=== PATIENT | female | born 1940 | race African-American/Black ===

== ENCOUNTER 2017-07-15 13:12 | Observation (INO) | payer OTHER ==
[~2017-07-15] VITALS: Ht 154.9 cm; Wt 49.9 kg
[2017-07-15] MEDS ORDERED: cloNIDine HCL 0.1 MG TAB PO ONE (14:00)
[2017-07-15 14:02] LABS: Hematocrit 26.7 % (36.0-46.0); Hemoglobin 7.9 g/dL (12.2-16.2); Mean Corpuscular Hemoglobin 20.9 pg (28.0-32.0); Mean Corpuscular Hgb Conc. 29.4 g/dL (32.0-36.0); Mean Corpuscular Volume 71.2 fL (80.0-100.0); Red Blood Cells 3.76 10^6/uL (4.0-5.20)
[2017-07-15 14:16] LABS: Alanine Aminotransferase 53 U/L (13-56); Albumin 3.1 g/dL (3.4-5.0); Anion Gap 10 (5-15); Aspartate Aminotransferase 78 U/L (15-37); BUN/Creatinine Ratio 11.8; Blood Urea Nitrogen 8 mg/dL (7-18); Calcium 8.2 mg/dL (8.5-10.1); Carbon Dioxide 24 mmol/L (21-32); Chloride 109 mmol/L (98-107); GFR African American 108 mL/min; GFR Non-African American 90 mL/min; Glucose 78 mg/dL (74-106); INR 1.09 (0.9-1.15); Magnesium 1.9 mg/dL (1.6-2.6); Partial Thromboplastin Time 31.5 sec (23.78-33.04); Prothrombin Time 11.6 sec (9.27-12.13); Red Cell Distribution Width 23.6 % (11.8-14.3); Sodium 143 mmol/L (136-145)
[2017-07-15 14:18] LABS: Band Neutrophils % (manual) 0; Basophils % (manual) 0 (0.0-2.0); Blast Cells 0; Eosinophils % (manual) 0 (0-7); Metamyelocytes % 0; Myelocytes % 0; Promyelocytes % 0; Reactive Lymphocytes 0
[2017-07-15 14:24] LABS: Alkaline Phosphatase 210 U/L (45-117); Total Protein 9.1 g/dL (6.4-8.2)
[2017-07-15 14:37] LABS: Lymphocytes % (manual) 24 (10.0-50.0); Monocytes % (manual) 5 (0-12)
[2017-07-15 14:42] LABS: Platelet Count (auto) 53 10^3/uL (140-450)
[2017-07-15] MEDS ORDERED: POTASSIUM CHL 20 Meq TABLET PO ONE (15:30)
[2017-07-15 18:20] VITALS: BP 169/85
== END 2017-07-15 17:08 | disposition short-term general hospital (02) | DRG 684 ==
LOC: EDBD 13:12 → ER 13:17 → OVERFLOW 13:18 → ER 17:08
PROVIDERS: ADMIT Family Medicine; ATTEND Family Medicine
DX: I12.9 Hypertensive chronic kidney disease with stage 1 through stage 4 chronic kidney disease, or unspecified chronic kidney disease (principal); N18.3 Chronic kidney disease, stage 3 (moderate); D69.6 Thrombocytopenia, unspecified; E87.6 Hypokalemia; F03.90 Unspecified dementia, unspecified severity, without behavioral disturbance, psychotic disturbance, mood disturbance, and anxiety
CPT/HCPCS: 36415; 70450; 71045; 80053; 82962; 83735; 83880; 84443; 84484; 85007; 85027; 85610; 85730; 93005; 99291; G0378; J7030

== ENCOUNTER 2018-10-18 16:22 | Emergency (ER) | payer OTHER ==
[~2018-10-18] VITALS: Ht 160 cm; Wt 56.7 kg
[2018-10-18 17:26] LABS: Basophils # (auto) 0 uL; Basophils % (auto) 0.3 % (0.0-2.0); Eosinophils # (auto) 0 uL; Lymphocytes # (auto) 0.2 uL; Neutrophils # (auto) 1.7 uL; White Blood Cell 2.2 10^3/uL (4.4-10.8)
[2018-10-18 17:29] LABS: Eosinophils % (auto) 1.6 % (0.0-7.0); Hematocrit 29.1 % (36.0-46.0); Hemoglobin 9.3 g/dL (12.2-16.2); Lymphocytes % (auto) 8.3 % (10.0-50.0); Mean Corpuscular Hemoglobin 26.4 pg (28.0-32.0); Mean Corpuscular Volume 82.5 fL (80.0-100.0); Monocytes # (auto) 0.3 uL; Monocytes % (auto) 12.1 % (0.0-12.0); Neutrophils % (auto) 77.7 % (37.0-80.0); Nucleated Red Blood Cells % 0.1 %; Platelet Count (auto) 50 10^3/uL (140-450); Red Blood Cells 3.52 10^6/uL (4.0-5.20)
[2018-10-18 17:33] LABS: Red Cell Distribution Width 20.4 % (11.8-14.3)
[2018-10-18 17:49] LABS: BUN/Creatinine Ratio 15.2; Calcium 8.2 mg/dL (8.5-10.1)
[2018-10-18 17:59] LABS: Potassium 2.9 mmol/L (3.5-5.1)
[2018-10-18] MEDS ORDERED: POTASSIUM CHL 20 Meq TABLET PO ONE (18:15)
[2018-10-18 18:44] VITALS: BP 197/88
== END 2018-10-18 19:02 | disposition home or self-care (01) ==
LOC: EDBD 16:22 → ER 16:28
DX: I16.0 Hypertensive urgency (principal); I10 Essential (primary) hypertension; D64.9 Anemia, unspecified
CPT/HCPCS: 36415; 80048; 85025; 93005

== ENCOUNTER 2019-05-15 07:50 | Inpatient (IN) | payer OTHER ==
[~2019-05-15] VITALS: Ht 157.5 cm; Wt 61.0 kg
[2019-05-15] VITALS (8 sets, daily range): BP systolic 48–97; BP diastolic 29–67
[2019-05-15] MEDS ORDERED: DEXTROSE 50% SYRINGE 50 ML IV ONE (07:59)
[2019-05-15] MEDS ORDERED: ACCU-CHEK COMFORT CURVE STRIP VI ONE (08:00)
[2019-05-15] MEDS ORDERED: DEXTROSE (50%) 50ML SYRG IV ONE ×3 (08:15→16:00)
[2019-05-15] MEDS ORDERED: SODIUM CHLORIDE 0.9% 1,000 ML IV ONE (08:41)
[2019-05-15 08:48] LABS: Red Blood Cells 3.53 10^6/uL (4.0-5.20)
[2019-05-15 08:49] LABS: Hematocrit 32.6 % (36.0-46.0); Hemoglobin 8.6 g/dL (12.2-16.2); Mean Corpuscular Hemoglobin 24.3 pg (28.0-32.0); Mean Corpuscular Hgb Conc. 26.3 g/dL (32.0-36.0); Mean Corpuscular Volume 92.3 fL (80.0-100.0); Platelet Count (auto) 29 10^3/uL (140-450); White Blood Cell 12.7 10^3/uL (4.4-10.8)
[2019-05-15 08:57] LABS: Red Cell Distribution Width 23.3 % (11.8-14.3)
[2019-05-15 09:04] LABS: Albumin 1.1 g/dL (3.4-5.0); Calcium 7.4 mg/dL (8.5-10.1)
[2019-05-15 09:11] LABS: BUN/Creatinine Ratio 15.6; Bilirubin, Total 5.1 mg/dL (0.2-1.0); Total Protein 5.4 g/dL (6.4-8.2)
[2019-05-15 09:29] LABS: Potassium 6.2 mmol/L (3.5-5.1)
[2019-05-15] MEDS ORDERED: SODIUM BICARBONATE 8.4 % INJ 50ML VIAL IV ONE ×2 (10:15→20:00)
[2019-05-15] MEDS ORDERED: CALCIUM GLUC 4.65meq/50ml D5AE 50 ML IV ONE ×2 (10:15→10:30)
[2019-05-15] MEDS ORDERED: ALBUMIN 25% 100 ML IV ONE (10:30)
[2019-05-15] MEDS ORDERED: MORPHINE SULF INJ 2 MG/ML SYRINGE 1ML IV PRN ×2 (10:45→12:30)
[2019-05-15] MEDS ORDERED: NITROGLYCERIN 0.4 MG SL TAB SL PRN (10:45)
[2019-05-15 10:56] LABS: Basophils % (manual) 0 (0.0-2.0); Blast Cells 0; Lymphocytes % (manual) 0 (10.0-50.0); Myelocytes % 0; Promyelocytes % 0; Reactive Lymphocytes 0
[2019-05-15 10:59] LABS: Band Neutrophils % (manual) 19; Eosinophils % (manual) 1 (0-7); Metamyelocytes % 2; Monocytes % (manual) 3 (0-12)
[2019-05-15] MEDS ORDERED: ALBUTEROL SULF 2.5 MG/0.5ML(0.5%) NEB SOLN NEB ONE (11:00)
[2019-05-15 12:01] LABS: Urine Amorphous Crystal MANY /hpf (None Seen); Urine Bacteria FEW /hpf (None Seen); Urine Blood 1+ /uL (Negative); Urine Hyaline Cast MANY /lpf (0 - 2); Urine Mucus FEW (None Seen); Urine Specific Gravity 1.017 (1.001-1.035); Urine WBC 7 /hpf (0 - 5)
[2019-05-15 12:18] LABS: Alcohol, Urine < 3.0 mg/dL (0-5); Amphetamine Screen, Urine NEGATIVE (NEGATIVE); Barbiturate Scree,Urine NEGATIVE (NEGATIVE); Benzodiazephine Screen, Urine NEGATIVE (NEGATIVE); Cannabinoid Screen, Urine NEGATIVE (NEGATIVE); Cocaine Screen, Urine NEGATIVE (NEGATIVE); Opiate Scree,Urine NEGATIVE (NEGATIVE); Phencyclidine Screen, Urine NEGATIVE (NEGATIVE)
[2019-05-15] MEDS ORDERED: ONDANSETRON HCL 4 MG/2 ML VIAL IV PRN (12:30)
[2019-05-15] MEDS ORDERED: ACETAMINOPHEN 500 MG TAB PO PRN (12:30)
[2019-05-15] MEDS ORDERED: FAMOTIDINE (10MG/ML) 2ML VL IV SCH (12:45)
[2019-05-15 13:15] LABS: Hemoglobin 7.8 g/dL (12.2-16.2); Mean Corpuscular Hemoglobin 24.9 pg (28.0-32.0); Mean Corpuscular Volume 88.2 fL (80.0-100.0); Platelet Count (auto) 23 10^3/uL (140-450)
[2019-05-15] MEDS: SODIUM BICARBONATE 50ML VIAL 150 ML in D5W 5% 1,000 ML IV SCH (13:16)
[2019-05-15 13:17] LABS: Hematocrit 27.5 % (36.0-46.0); Mean Corpuscular Hgb Conc. 28.3 g/dL (32.0-36.0); Red Blood Cells 3.12 10^6/uL (4.0-5.20)
[2019-05-15] MEDS ORDERED: PANTOPRAZOLE 40 MG TAB PO ONE (13:18)
[2019-05-15] MEDS ORDERED: PANTOPRAZOLE 40 MG/10 ML VIAL INJ IV ONE (13:25)
[2019-05-15 13:28] LABS: Red Cell Distribution Width 22.7 % (11.8-14.3)
[2019-05-15 13:35] LABS: Calcium 7.4 mg/dL (8.5-10.1)
[2019-05-15 13:42] LABS: BUN/Creatinine Ratio 16.6
[2019-05-15] MEDS: PIPERACILLIN-TAZOB 2.25GM 50 ML IV SCH (14:00)
[2019-05-15] MEDS: CLINDAMYCIN 300MG IV 50 ML IV SCH ×2 (14:00→23:00)
[2019-05-15] MEDS: ACCU-CHEK COMFORT CURVE STRIP VI SCH ×3 (14:00→22:00)
[2019-05-15 14:14] LABS: Basophils % (manual) 0 (0.0-2.0); Blast Cells 0; Eosinophils % (manual) 0 (0-7); Promyelocytes % 0; Reactive Lymphocytes 0
[2019-05-15 14:17] LABS: Band Neutrophils % (manual) 22; Lymphocytes % (manual) 4 (10.0-50.0); Metamyelocytes % 4; Monocytes % (manual) 5 (0-12); Myelocytes % 2
[2019-05-15 14:20] LABS: White Blood Cell 3.5 10^3/uL (4.4-10.8)
[2019-05-15] MEDS ORDERED: LACTULOSE 20Gm/30ML SOLN PR ONE (14:30)
[2019-05-15 15:28] LABS: Lactic Acid w/Reflex 15.8 mmol/L (0.4-2.0)
[2019-05-15] MEDS ORDERED: DEXTROSE 10% 1,000 ML IV ONE (16:45)
[2019-05-15] MEDS ORDERED: MIDAZOLAM HCL 1MG/1ML-2 ML VIAL ONE (19:05)
[2019-05-15] MEDS ORDERED: MIDAZOLAM HCL 1MG/1ML-2 ML VIAL IV ONE ×2 (19:15)
[2019-05-15] MEDS: MIDAZOLAM DRIP 50 mg/50mL 50 ML IV SCH (20:04)
[2019-05-15] MEDS: NOREPINEPHRINE 8 MG/250ML KIT 250 ML IV SCH (20:10)
[2019-05-15 20:30] LABS: BUN/Creatinine Ratio 15.5; Calcium 7.4 mg/dL (8.5-10.1); Magnesium 2.7 mg/dL (1.6-2.6); Potassium 5.1 mmol/L (3.5-5.1)
[2019-05-15 20:46] LABS: Lactic Acid w/Reflex 20.2 mmol/L (0.4-2.0)
[2019-05-15] MEDS ORDERED: PHENYLEPHRINE IV 250 ML IV ONE (22:00)
[2019-05-15] MEDS: PHENYLEPHRINE IV 250 ML IV SCH (22:24)
[2019-05-15] MEDS ORDERED: VASOPRESSIN 20 UNIT/ML ONE (23:45)
[2019-05-15] MEDS ORDERED: VASOPRESSIN 50 UNITS in D5W 5% 247.5 ML IV SCH (23:45)
[2019-05-16] VITALS (69 sets, daily range): BP systolic 69–176; BP diastolic 36–104
[2019-05-16] MEDS: PHENYLEPHRINE IV 250 ML IV SCH ×4 (00:01→05:56)
[2019-05-16] MEDS: PIPERACILLIN-TAZOB 2.25GM 50 ML IV SCH ×2 (00:01→06:00)
[2019-05-16] MEDS ORDERED: SODIUM BICARBONATE 8.4 % INJ 50ML VIAL IV ONE ×2 (00:23→04:15)
[2019-05-16] MEDS ORDERED: DOPamine 1600MCG/ML D5W 250 ML IV SCH (00:25)
[2019-05-16] MEDS ORDERED: EPINEPHrine HCL 250 ML IV SCH (00:25)
[2019-05-16] MEDS ORDERED: DOPamine 1600MCG/ML D5W 250 ML IV ONE (00:27)
[2019-05-16] MEDS: SODIUM BICARBONATE 50ML VIAL 150 ML in D5W 5% 1,000 ML IV SCH (00:37)
[2019-05-16] MEDS: NOREPINEPHRINE 8 MG/250ML KIT 250 ML IV SCH (01:33)
[2019-05-16 03:20] LABS: BUN/Creatinine Ratio 15.4; Calcium 7.6 mg/dL (8.5-10.1)
[2019-05-16 03:22] LABS: Mean Corpuscular Hemoglobin 24.5 pg (28.0-32.0); Mean Corpuscular Hgb Conc. 23.3 g/dL (32.0-36.0); Red Blood Cells 1.81 10^6/uL (4.0-5.20); White Blood Cell 5.2 10^3/uL (4.4-10.8)
[2019-05-16 03:23] LABS: Red Cell Distribution Width 23.6 % (11.8-14.3)
[2019-05-16 03:25] LABS: Hemoglobin 4.4 g/dL (12.2-16.2); Platelet Count (auto) 15 10^3/uL (140-450)
[2019-05-16 03:27] LABS: Basophils % (manual) 0 (0.0-2.0); Blast Cells 0; Eosinophils % (manual) 0 (0-7); Reactive Lymphocytes 0
[2019-05-16 03:29] LABS: Bilirubin, Total 3.1 mg/dL (0.2-1.0)
[2019-05-16 03:34] LABS: Lactic Acid w/Reflex 30.1 mmol/L (0.4-2.0)
[2019-05-16 03:40] LABS: Albumin 0.8 g/dL (3.4-5.0); Potassium 6.9 mmol/L (3.5-5.1)
[2019-05-16 03:48] LABS: Band Neutrophils % (manual) 29; Lymphocytes % (manual) 6 (10.0-50.0); Metamyelocytes % 2; Monocytes % (manual) 5 (0-12); Myelocytes % 4; Promyelocytes % 3
[2019-05-16] MEDS: ACCU-CHEK COMFORT CURVE STRIP VI SCH ×2 (04:00→06:30)
[2019-05-16] MEDS ORDERED: InsuLIN REG 1unit/0.01ml Soln (100units/ml) ONE (04:10)
[2019-05-16] MEDS ORDERED: SODIUM BICARBONATE 8.4% INJ 50ML SYRINGE ONE (04:11)
[2019-05-16] MEDS ORDERED: DEXTROSE 50% SYRINGE 50 ML IV ONE (04:12)
[2019-05-16] MEDS ORDERED: CALCIUM GLUC 4.65meq/50ml D5AE 50 ML IV ONE ×3 (04:12→07:25)
[2019-05-16] MEDS ORDERED: DEXTROSE (50%) 50ML SYRG IV ONE (04:15)
[2019-05-16] MEDS ORDERED: InsuLIN REG 1unit/0.01ml Soln (100units/ml) IV ONE (04:15)
[2019-05-16 04:33] LABS: Partial Thromboplastin Time 11.4 sec (23.64-32.05)
[2019-05-16] MEDS: CLINDAMYCIN 300MG IV 50 ML IV SCH (06:35)
[2019-05-16] MEDS: MIDAZOLAM DRIP 50 mg/50mL 50 ML IV SCH (06:35)
[2019-05-16] MEDS ORDERED: SODIUM BICARBONATE 8.4% INJ 50ML SYRINGE IV ONE (13:11)
[2019-05-16] MEDS ORDERED: CALCIUM CHLOR(10%) 100MG/ML 10ML SYRINGE IV ONE (13:11)
[2019-05-16] MEDS ORDERED: EPINEPHrine HCL 1 MG/10 ML SYRG IV ONE (13:11)
== END 2019-05-16 12:00 | disposition expired | DRG 871 ==
LOC: ER 07:50 → EDBD 07:50 → TELE 07:51 → ICU WEST 23:25
PROVIDERS: ADMIT Nurse Practitioner Acute Care; ATTEND Internal Medicine
PROC: 5A1935Z Respiratory Ventilation, Less than 24 Consecutive Hours (ICD-10-PCS; principal; 2019-05-15)
PROC: 0BH17EZ Insertion of Endotracheal Airway into Trachea, Via Natural or Artificial Opening (ICD-10-PCS; 2019-05-15)
PROC: 06HM33Z Insertion of Infusion Device into Right Femoral Vein, Percutaneous Approach (ICD-10-PCS; 2019-05-15)
PROC: 5A12012 Performance of Cardiac Output, Single, Manual (ICD-10-PCS; 2019-05-16)
PROC: 30233N1 Transfusion of Nonautologous Red Blood Cells into Peripheral Vein, Percutaneous Approach (ICD-10-PCS; 2019-05-16)
DX: A41.50 Gram-negative sepsis, unspecified (principal); G93.41 Metabolic encephalopathy; K76.7 Hepatorenal syndrome; E43 Unspecified severe protein-calorie malnutrition; N17.0 Acute kidney failure with tubular necrosis; I21.4 Non-ST elevation (NSTEMI) myocardial infarction; J96.00 Acute respiratory failure, unspecified whether with hypoxia or hypercapnia; J98.11 Atelectasis; D61.818 Other pancytopenia; E87.0 Hyperosmolality and hypernatremia; R18.8 Other ascites; L97.929 Non-pressure chronic ulcer of unspecified part of left lower leg with unspecified severity; L97.919 Non-pressure chronic ulcer of unspecified part of right lower leg with unspecified severity; R65.20 Severe sepsis without septic shock; E16.2 Hypoglycemia, unspecified; L89.319 Pressure ulcer of right buttock, unspecified stage; L89.159 Pressure ulcer of sacral region, unspecified stage; L89.629 Pressure ulcer of left heel, unspecified stage; L89.619 Pressure ulcer of right heel, unspecified stage; E87.5 Hyperkalemia; D63.8 Anemia in other chronic diseases classified elsewhere; I10 Essential (primary) hypertension; I46.9 Cardiac arrest, cause unspecified; K74.60 Unspecified cirrhosis of liver; R73.9 Hyperglycemia, unspecified; F01.50 Vascular dementia, unspecified severity, without behavioral disturbance, psychotic disturbance, mood disturbance, and anxiety; K72.90 Hepatic failure, unspecified without coma; Z68.24 Body mass index [BMI] 24.0-24.9, adult; Z74.01 Bed confinement status; I46.8 Cardiac arrest due to other underlying condition
CPT/HCPCS: 36415; 36600; 51702; 70450; 71045; 74176; 80048; 80053; 80307; 81001; 82140; 82805; 82962; 83605; 83735; 84443; 84484; 85007; 85025; 85027; 85610; 85730; 86850; 86900; 86901; 86920; 87040; 87070; 87077; 87081; 87086; 87088; 87186; 87205; 92950; 93005; 93306; 94002; 94003; 94640; 96361; 96365; 96375; 99291; C9113; G0378; J0610; J1815; J2250; J2543; J3490; J7060; P9047